=== PATIENT | male | born 1960 | race Caucasian/White ===

== ENCOUNTER 2018-03-23 16:20 | Emergency (ER) | payer OTHER, BC ==
[2018-03-23] MEDS: NORCO, ANEXSIA 5/325MG TABLET (HYDROcodone/ACETAMINOPHEN) PO (17:56)
[2018-03-23] MEDS: NORCO 5/325MG TABLET (BULK FOR ED) PO (18:30)
== END 2018-03-23 18:45 | disposition home or self-care (01) ==
LOC: M ED 16:20
DX: M25.462 Effusion, left knee (principal); X50.1XXA Overexertion from prolonged static or awkward postures, initial encounter; Y92.89 Other specified places as the place of occurrence of the external cause; F17.200 Nicotine dependence, unspecified, uncomplicated
CPT/HCPCS: 73564

== ENCOUNTER 2024-04-26 10:28 | Emergency (ER) | payer OTHER ==
[~2024-04-26] VITALS: Ht 180.3 cm; Wt 88.2 kg
[~2024-04-26 10:28] MED LIST: HYDR-3715 PO
[2024-04-26] MEDS ORDERED: ACET1TAB55 PO (10:40)
[2024-04-26] MEDS ORDERED: ATOR1TAB19 (10:40)
[2024-04-26] MEDS: KETOROLAC 60MG 2ML VIAL IM ONE (12:31)
[2024-04-26 13:43] LABS: BASO % 0.4 % (0.0-1.0); EOS # 0.1 10^3/uL (0.0-0.5); EOS % 1.2 % (0.0-3.0); HEMATOCRIT 49.4 % (42.0-52.0); HEMOGLOBIN 16.7 g/dl (13.5-17.5); LYMPH # 1.6 10^3/uL (1.5-5.0); LYMPH % 21.7 % (24.0-44.0); MEAN CORPUSCULAR HEMOGLOBIN 33.9 pg (27.0-33.0); MEAN CORPUSCULAR HGB CONC 33.8 g/dl (32.0-36.5); MEAN CORPUSCULAR VOLUME 100.4 fl (80.0-96.0); MONO # 0.7 10^3/uL (0.0-0.8); MONO % 9.7 % (2.0-8.0); NEUTROPHILS # 4.9 10^3/uL (1.5-8.5); NEUTROPHILS % 66.5 % (36.0-66.0); PLATELET COUNT, AUTOMATED 145 10^3/uL (150-450); RED BLOOD COUNT 4.92 10^6/uL (4.30-6.10); WHITE BLOOD COUNT 7.4 10^3/uL (4.0-10.0)
[2024-04-26 14:06] LABS: LIPASE 45 U/L (12-53)
[2024-04-26 14:09] LABS: ALBUMIN 3.9 G/DL (3.2-5.2); ALKALINE PHOSPHATASE 45 U/L (46-116); ALT/SGPT 19 U/L (7.0-40); AST/SGOT 16 U/L (<34); BILIRUBIN,DIRECT 0.2 MG/DL (<0.4); BILIRUBIN,TOTAL 0.8 MG/DL (0.3-1.2); BLOOD UREA NITROGEN 17 MG/DL (9-23); CALCIUM LEVEL 9.1 MG/DL (8.3-10.6); CARBON DIOXIDE LEVEL 30 MMOL/L (20-31); CHLORIDE LEVEL 104 MMOL/L (98-107); CREATININE FOR GFR 1.21 MG/DL (0.70-1.30); GLOMERULAR FILTRATION RATE > 60.0 (>49); GLUCOSE, FASTING 105 MG/DL (74-106); POTASSIUM SERUM 4.6 MMOL/L (3.5-5.1); SODIUM LEVEL 136 MMOL/L (136-145); TOTAL PROTEIN 6.8 G/DL (5.7-8.2)
[2024-04-26 14:12] VITALS: BP 136/78; TEMP 97.6; O2SAT 98
[2024-04-26] MEDS ORDERED: TAMS1CAP17 PO (14:41)
[2024-04-26] MEDS ORDERED: KETO10TAB PO (14:41)
[2024-04-26] MEDS ORDERED: CIPR-249 PO (14:41)
[2024-04-26] MEDS: TAMSULOSIN 0.4 MG CAP PO ONE (15:12)
== END 2024-04-26 15:16 | disposition home or self-care (01) ==
LOC: M ED 10:28
DX: N21.1 Calculus in urethra (principal); F17.200 Nicotine dependence, unspecified, uncomplicated
CPT/HCPCS: 71101; 74176; 80048; 80076; 81001; 83690; 85025; 87086; 96372; 99283; J1885